=== PATIENT | male | born 2000 | race Caucasian/White ===

== ENCOUNTER → 2023-03-17 11:32 | Outpatient (CLI) | payer BC, SELFPAY ==
--- NOTE | ~2023-03-17 | US_ITS ---
Thyroid ultrasound. Clinical History: Abnormal thyroid function tests Findings: Real-time sonography of the thyroid gland was performed. The right lobe measures 5.5 x 1.5 x 1.5 cm. The left lobe measures 4.6 x 1.5 x 1.4 cm. The isthmus is 2 mm in AP diameter. No parenchy mal abnormality evident. Impression: No significant abnormality seen. Reviewed, dictated and finalized at location . Impression: No significant abnormality seen.
== END ==
PROVIDERS: PCP Physician Assistant; Visit Provider Physician Assistant
DX: R94.6 Abnormal results of thyroid function studies (principal)
CPT/HCPCS: 76536

== ENCOUNTER 2024-05-21 16:32 | Outpatient (CLI) | payer BC, SELFPAY ==
--- NOTE | ~2024-05-21 | XR_ITS ---
EXAM: XR toe 1st LT min 2V DATE: 05/21/2024 16:49 HISTORY: UNSPEC INJURY OF L FOOT . COMPARISON: None available. FINDINGS: Normal mineralization. No fracture or dislocation. Subtle lucency and loss of the cortical line sign over the distal and anteromedial aspect of the first proximal phalanx (best seen in the ob lique view), with possible focal overlying soft tissue swelling. Joint spaces and physes are maintain ed. IMPRESSION: Possible small osseous erosion at the distal and anteromedial aspect of the first proxima l phalange as can be seen with osteomyelitis, considered more likely if there was overlying skin inju ry to serve as an inoculation site for infection. MRI of the toe without and with contrast would be h elpful for further characterization. If clinical suspicion for infection is low, consider close clini keke and radiographic follow-up. Reviewed, dictated and finalized at [facility]. IMPRESSION: Possible small osseous erosion at the distal and anteromedial aspec t of the first proximal phalange as can be seen with osteomyelitis, considered more likely if there was overlying skin injury to serve as an inoculation site for infection. MRI of the toe without and with contrast would be helpful for fu rther characterization. If clinical suspicion for infection is low, consider cl ose clinical and radiographic follow-up.
== END 2024-05-21 16:33 ==
LOC: MICIMG 16:34
PROVIDERS: PCP Physician Assistant; Visit Provider Physician Assistant
DX: S99.922A Unspecified injury of left foot, initial encounter (principal); X58.XXXA Exposure to other specified factors, initial encounter
CPT/HCPCS: 73660